=== PATIENT | female | born 1995 | race Caucasian/White ===

== ENCOUNTER 2017-02-16 08:21 | Inpatient (IN) | payer OTHER ==
[~2017-02-16] VITALS: Ht 167.6 cm; Wt 136.1 kg
[~2017-02-16 08:21] MED LIST: AMOXICILLIN250 M3 PO; VITAFOL-ONE CA1 EACH PO; ZOFRAN4 M2 PO
[2017-02-16 10:35] LABS: ABSOLUTE BASOPHIL COUNT 0.1 /CUMM (0.0-0.2); ABSOLUTE EOSINOPHIL COUNT 0 /CUMM (0.0-0.7); ABSOLUTE GRANULOCYTE CT 10.6 /CUMM (1.4-6.5); ABSOLUTE LYMPH COUNT 1.8 /CUMM (1.2-3.4); ABSOLUTE MONOCYTE COUNT 0.7 /CUMM (0.10-0.60); BASOPHIL % 0.4 % (0.0-2.0); EOSINOPHIL % 0.3 % (0-5); GRANULOCYTE % 80.4 % (42.2-75.2); MEAN CORPUSCULAR HGB 31.1 PG (27.0-31.0); MEAN CORPUSCULAR HGB CONC 34.2 G/DL (33.0-37.0); MEAN CORPUSCULAR VOLUME 91.1 FL (81.0-99.0); MEAN PLATELET VOLUME 9.1 FL (7.4-10.4); PLATELET COUNT 252 /CUMM (130-400); RED BLOOD CELL CT 4.61 /CUMM (4.20-5.40); WHITE BLOOD CELL COUNT 13.2 /CUMM (4.8-10.8)
[2017-02-16 11:36] VITALS: BP 126/75
--- NOTE | 2017-02-17 15:13 | History & Physical Pre-Op ---
General Information and HPI MD Statement: 21-year-old 1 para 0 at 38 weeks gestation who presents to the childbirth center unannounced complaining of ruptured membranes patient is grossly ruptured she has a history of group B strep. She was seen on in the room on found to be grossly ruptured clear the need for IV antibiotics and admission to the hospital patient was informed same at which point the patient's significant other became belligerent abusive to nurses and staff and myself combative Using [address] [place] which point the patient was decided to transfer to [facility] she was offered an ambulance transfer contact lens polisher she left AGAINST MEDICAL ADVICE appropriate forms were signed I have seen and personally examined SNEHAL ZAZUETA and documented this H&P. The patient is a 21 year old F who presented with a patient stated chief complaint of []. History of Present Illness: Patient presented to the hospital fluid ounces grossly ruptured clear fluid jackie every 8-10 minutes she requested discharge to her home [facility] the risks to the and mother of infection delivery en route reviewed with patient and her family present on patient refused to stay at the hospital. Patient was also offered counseling regarding [facility] she refused Allergies/Medications Allergies: Coded Allergies: No Known Allergies (11/11/16) Home Med list Amoxicillin 250 MG CAPSULE 1 CAP PO TID FINGER INFECTION Ondansetron HCl (Zofran) 4 MG TABLET 1 TAB PO Q6-8P PRN nausea Pnv#26/Iron Poly/FA/Dha (Vitafol-One Capsule) 29 MG IRON-1 MG-200 MG CAPSULE 1 CAP PO DAILY PRENATALS (Reported) Past History Medical History Neurological: NONE EENT: NONE Cardiovascular: NONE Respiratory: NONE Gastrointestinal: NONE Hepatic: NONE Renal: NONE Musculoskeletal: NONE Psychiatric: NONE Endocrine: NONE Blood Disorders: NONE Cancer(s): NONE 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 Attending MD Review Statement Attending Statement Attending MD Statement: examined this patient
--- NOTE | 2017-02-17 15:15 | Surgical Discharge Summary ---
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 Syriac Review of Systems: -13 point review of systems Hospital Course Course Attending Physician: ARABELLA STRICKLAND MD Primary Care Physician: ARABELLA STRICKLAND MD Hospital Course: Patient had an IV started was given antibiotics for sewn requested to leave AGAINST MEDICAL ADVICE and she was discharged. Allergies: Coded Allergies: No Known Allergies (11/11/16) Disposition Summary Disposition Principal Diagnosis: I term 38 weeks ruptured membranes Additional Diagnosis: Cannabis Discharge Disposition: home or self care Discharge Instructions General Discharge Information Code Status: Full Code Patient's Diet: Regular Patient's Activity: Pelvic rest Follow-Up Instructions/Appts: Follow-up instructions seek medical care patient has been subsequently discharged home to 15 day noticed from my office
== END 2017-02-16 10:56 | disposition left against medical advice (07) | DRG 566 ==
LOC: CBCO 08:21 → GNO 09:16 → CBCO 02-27 08:00
PROVIDERS: ADMIT Specialist
DX: O42.92 Full-term premature rupture of membranes, unspecified as to length of time between rupture and onset of labor (principal); Z3A.38 38 weeks gestation of pregnancy; O99.820 Streptococcus B carrier state complicating pregnancy
CPT/HCPCS: GNOP; 80307; 81001; 84112; J0290; J7120